=== PATIENT | female | born 1965 | race Caucasian/White ===

== ENCOUNTER 2017-01-04 18:36 | Day surgery (SDC) | payer OTHER ==
[~2017-01-04] VITALS: Ht 154.9 cm; Wt 98.2 kg
[2017-01-04] MEDS ORDERED: VERAMYST (18:49)
[2017-01-04] MEDS ORDERED: VITA1CAP40 PO (18:49)
[2017-01-04] MEDS ORDERED: TETANUS/DIPHTHERIA TOX ADSORB ADULT 0.5ML SYR/VIAL (90714) IM ONE (20:45)
[2017-01-04] MEDS ORDERED: CLINDAMYCIN 900 MG in APPROPRIATE DILUENT 1 EA IV ONE (20:45)
[2017-01-04] MEDS ORDERED: PERC5TAB12 PO (21:15)
[2017-01-04] MEDS ORDERED: CLEO300C2 PO (21:15)
[2017-01-04] MEDS ORDERED: COLA100C5 PO (21:15)
[2017-01-04] MEDS ORDERED: LIDOCAINE 1% SDV INJ 30 ML VIAL As Ordered ONE (22:08)
[2017-01-04] MEDS ORDERED: BUPIVACAINE HCL 0.25% 30 ML VIAL As Ordered ONE (22:08)
[2017-01-04] MEDS ORDERED: XIID5DRO OU (22:08)
[2017-01-04] MEDS ORDERED: SYST1SOL OU (22:08)
[2017-01-05] MEDS ORDERED: LR 1,000 ML IV SCH
[2017-01-05] MEDS ORDERED: fentaNYL 100 MCG/2 ML INJECTION (J3010) IV PRN
[2017-01-05] MEDS ORDERED: LIDOCAINE 2% INJ 100 MG/5 ML SDV (FOR ANES.) As Ordered ONE (00:01)
[2017-01-05] MEDS ORDERED: PROPOFOL 200 MG/20 ML VIAL As Ordered ONE (00:01)
[2017-01-05] MEDS ORDERED: fentaNYL 100 MCG/2 ML INJECTION (J3010) As Ordered ONE (00:01)
[2017-01-05] MEDS ORDERED: MIDAZOLAM INJ 2 MG/2 ML VIAL (J2250) As Ordered ONE (00:01)
[2017-01-05 00:10] VITALS: BP 131/78
[2017-01-05] MEDS ORDERED: MORPHINE 2 MG/ML 1ML SYRINGE IV PRN (00:15)
[2017-01-05] MEDS ORDERED: PERCOCET 5MG/325MG TAB PO PRN ×2 (00:15)
[2017-01-05] MEDS ORDERED: NS 1,000 ML IV SCH (00:15)
--- NOTE | 2017-01-05 00:37 | REP ---
Clinical: Trauma. Laceration. Technique: AP, lateral, bilateral oblique views of the right second digit. Findings: Compound, comminuted, transverse fracture through the distal phalanx is appreciated with associated displacement of the distal fracture fragment and overlying laceration/soft tissue injury. Small densities are most consistent with small fracture fragments and less likely foreign body material. Impression: Comminuted, compound fracture of the distal phalanx with displacement. Signed by Ankit Ferraro MD 01/05/2017 12:30 A
[2017-01-05 00:50] VITALS: BP 121/69
[2017-01-05 01:20] VITALS: BP 134/86
--- NOTE | 2017-01-05 02:37 | REP ---
Clinical: Intraoperative reduction and fixation. Technique: Multiple intraoperative fluoroscopic images. Findings: AP and lateral views of the right second digit demonstrates the patient to be status post satisfactory reduction and fixation for distal phalangeal fracture with K-wire in satisfactory position. Total fluoroscopic time 43 seconds. Impression: Status post intraoperative fixation for distal phalangeal fracture. Signed by Ankit Ferraro MD 01/05/2017 02:29 A
--- NOTE | 2017-01-05 14:07 | HPE ---
DATE OF ADMISSION: 01/04/2017 CHIEF COMPLAINT: Right index finger injury. HISTORY OF PRESENT ILLNESS: The patient caught her right index fingertip beneath a falling beam this evening and presented promptly with partial amputation of the right index fingertip. No other active complaints at this time. PAST MEDICAL HISTORY: Denies. PAST SURGICAL HISTORY: Right knee arthroscopy, foot surgery, section, hysterectomy. CURRENT MEDICATIONS: On vitamin D and Viramist for allergies. SOCIAL HISTORY: Denies tobacco, alcohol, or drug use at this time. REVIEW OF SYSTEMS: No fevers, chills, nausea, vomiting. No diarrhea or constipation. No chest pain or shortness of breath. ALLERGIES: She believes that she may have an allergy to PENICILLIN. PHYSICAL EXAMINATION: Awake, alert, and oriented times three. Well appearing female. No acute distress. Appropriately dressed, well nourished. Head is normocephalic, atraumatic. Extraocular muscles are intact. CARDIOVASCULAR: Regular rate and rhythm. PULMONARY: No increased work of breathing. ABDOMEN: Soft, nontender, nondistended. EXTREMITIES : Focused examination of the right hand index finger shows a partial amputation at the terminal phalanx level. She has less than 2 seconds capillary refill on the tip of the finger. The nail bed and nail plate are intact and grossly atraumatic. She does demonstrate some active flexion and extension of the terminal phalanx, limited somewhat due to guarding, but the tendon mechanism does appear to be intact at this time. There is no gross contamination. The finger and hand is otherwise atraumatic. The wrist and forearm are also nontender and grossly atraumatic. X-rays of the right hand and index finger shows a partial amputation at the terminal phalanx with a complete fracture just distal to the base of the third phalanx, which does appear to be extraarticular. ASSESSMENT: 1. Partial amputation at the right index finger, terminal phalanx, as above. PLAN: Dose of IV antibiotics and irrigation to be given in the emergency department followed by a dry dressing. Her tetanus will be updated. The plan at this time is to take her to the operating room for irrigation and debridement and pinning of the fracture, most likely a transarticular pinning given the small size of the terminal phalanx fragment and any other repairs or procedures as needed. All other questions were answered. She did sign a surgical consent in my presence. She is satisfied with the treatment and plan at this time.
--- NOTE | 2017-01-05 15:20 | RO ---
DATE OF PROCEDURE: 01/04/2017 PREPROCEDURE DIAGNOSIS: Right hand index finger terminal phalanx fracture with near amputation. POSTPROCEDURE DIAGNOSIS: Right hand index finger terminal phalanx fracture with near amputation. PROCEDURE PERFORMED: Right hand index finger ring block, irrigation, debridement, reduction and pinning of terminal phalanx fracture and laceration repair. PRIMARY SURGEON: Dr. Masood Solo. ANESTHESIA: Local plus monitored sedation. ESTIMATED BLOOD LOSS: 5 mL. IMPLANTS: Single percutaneous K wire was inserted. COMPLICATIONS: None. DESCRIPTION OF PROCEDURE: The patient was identified in the preoperative holding area by name, medical record, date of . Surgical site was marked in consultation with the patient. She was evaluated by anesthesia. When she was ready, she was brought back to the operating suite on a gurney and transferred to the table. At this point, she was sedated. Prior to doing the procedure, a final time out was performed and all in agreement. She was given IV antibiotic with clindamycin prior to incision. I began the procedure by performing a ring block with local anesthetic injection at the base of the index finger. Following this, the right index finger was sterilely prepped and draped in the usual fashion. I next copiously irrigated the laceration. This was a fairly clean laceration just distal to the distal interphalangeal joint. The finger itself was somewhat dirty and there were a few small flecks of dirt within the wound. The wound was copiously irrigated and cleaned. The wound edges were pink and well perfused. The long flexor tendon was grossly intact. Again, the wound was copiously irrigated using an antegrade-retrograde drilling technique, a K wire was inserted through the tip of the terminal phalanx. Next, using direct visualization and fluoroscopic guidance, the fracture itself was reduced and the pin was inserted transarticularly, given how small the fracture fragment was in the terminal phalanx. There was not felt to be any stability just within the small fracture fragment, necessitating a transarticular fixation and so the pin was inserted intramedullary fashion through the second phalanx, achieving fixation within the base of the second phalanx without violating the joint surface. Direct visualization and fluoroscopic guidance confirmed satisfactory reduction and position of the hardware. At this time, the laceration edges were loosely reapproximated. The nail base, which was avulsed from its origin was reduced back beneath the eponychial fold and overall the alignment and the contour of the finger was satisfactory at this time. THe fingertip did still remain pink and well perfused with less than 2 seconds capillary refill. Sterile dressings and a well padded finger splint were applied after the pin was appropriately bent and trimmed. Final x-rays in the splint confirmed satisfactory reduction and position of the hardware. The patient was brought out of anesthesia and transferred to the postanesthesia care unit in stable condition. PLAN: She will be discharged to home on prescription for home oral antibiotics. Followup in the outpatient clinic in 48 hours or so for a wound check and dressing change or earlier as needed.
== END 2017-01-05 01:40 | disposition home or self-care (01) ==
LOC: EDBD 18:36 → M ED 18:36 → M SDC 20:53 → M PED 01-05 00:13 → M SDC 01-05 01:40
DX: S62.630B Displaced fracture of distal phalanx of right index finger, initial encounter for open fracture (principal); S61.318A Laceration without foreign body of other finger with damage to nail, initial encounter; W20.8XXA Other cause of strike by thrown, projected or falling object, initial encounter; Y92.89 Other specified places as the place of occurrence of the external cause; Y93.89 Activity, other specified; Y99.8 Other external cause status; E66.01 Morbid (severe) obesity due to excess calories; J30.2 Other seasonal allergic rhinitis; Z88.0 Allergy status to penicillin; Z90.710 Acquired absence of both cervix and uterus
CPT/HCPCS: 11010; 12001; 26765; 64450; 73140; 90714; 99284; J2250; J3010

== ENCOUNTER → 2017-01-08 | Outpatient (REF) | payer OTHER ==
[~2017-01-08] MED LIST: CLEO300C2 PO; COLA100C5 PO; PERC5TAB12 PO; SYST1SOL OU; VERAMYST; VITA1CAP40 PO; XIID5DRO OU
== END ==
LOC: M LAB REF 15:24
PROVIDERS: ATTEND Orthopaedic Surgery
DX: S62.630D Displaced fracture of distal phalanx of right index finger, subsequent encounter for fracture with routine healing (principal); S62.630B Displaced fracture of distal phalanx of right index finger, initial encounter for open fracture; X58.XXXD Exposure to other specified factors, subsequent encounter; Y92.9 Unspecified place or not applicable; Y93.9 Activity, unspecified; Y99.9 Unspecified external cause status

== ENCOUNTER → 2017-05-12 | Outpatient (REF) | payer OTHER ==
[2017-05-12 12:57] LABS: ALBUMIN 4.1 GM/DL (3.2-5.2); ALBUMIN/GLOBULIN RATIO 1.37 (1.00-1.93); ALKALINE PHOSPHATASE 59 U/L (45-117); ALT/SGPT 40 U/L (12-78); ANION GAP 9 MEQ/L (8-16); AST/SGOT 24 U/L (7-37); BILIRUBIN,TOTAL 1.4 MG/DL (0.2-1.0); BLOOD UREA NITROGEN 15 MG/DL (7-18); CALCIUM LEVEL 8.9 MG/DL (8.5-10.1); CARBON DIOXIDE LEVEL 26 MEQ/L (21-32); CHLORIDE LEVEL 107 MEQ/L (98-107); CHOLESTEROL LEVEL 204 MG/DL (<200); CREATININE FOR GFR 0.75 MG/DL (0.55-1.02); GLOMERULAR FILTRATION RATE > 60.0 (>58); GLUCOSE, FASTING 103 MG/DL (70-105); POTASSIUM SERUM 4.2 MEQ/L (3.5-5.1); SODIUM LEVEL 142 MEQ/L (136-145); TOTAL PROTEIN 7.1 GM/DL (6.4-8.2); TRIGLYCERIDES LEVEL 86 MG/DL (<150)
== END ==
LOC: M SFHCPLAZ 09:16
PROVIDERS: ATTEND Internal Medicine
DX: Z00.00 Encounter for general adult medical examination without abnormal findings (principal); E55.9 Vitamin D deficiency, unspecified; E78.00 Pure hypercholesterolemia, unspecified

== ENCOUNTER → 2018-07-06 | Outpatient (REF) | payer OTHER ==
[~2018-07-06] MED LIST changes: -VITA1CAP40 PO; +VITA50005 PO
[2018-07-06 13:37] LABS: HEMATOCRIT 38.1 % (36.0-47.0); HEMOGLOBIN 12.9 g/dl (12.0-15.5); MEAN CORPUSCULAR HEMOGLOBIN 28.4 pg (27.0-33.0); MEAN CORPUSCULAR HGB CONC 33.9 g/dl (32.0-36.5); MEAN CORPUSCULAR VOLUME 83.9 fl (80.0-96.0); PLATELET COUNT, AUTOMATED 242 10^3/uL (150-450); RED BLOOD COUNT 4.54 10^6/uL (4.00-5.40)
[2018-07-06 14:10] LABS: ALBUMIN 4.1 GM/DL (3.2-5.2); ALT/SGPT 36 U/L (12-78); BILIRUBIN,TOTAL 0.8 MG/DL (0.2-1.0); BLOOD UREA NITROGEN 12 MG/DL (7-18); CALCIUM LEVEL 8.7 MG/DL (8.5-10.1); CARBON DIOXIDE LEVEL 27 MEQ/L (21-32); CHLORIDE LEVEL 106 MEQ/L (98-107); CHOLESTEROL LEVEL 209 MG/DL (<200); CHOLESTEROL RISK RATIO 4.446 (<5); CREATININE FOR GFR 0.64 MG/DL (0.55-1.30); GLOMERULAR FILTRATION RATE > 60.0 (>51); GLUCOSE, FASTING 123 MG/DL (70-100); HDL CHOLESTEROL 47 MG/DL (>40); LDL CHOLESTEROL 128 MG/DL (<100); NON-HDL-C 162 MG/DL; POTASSIUM SERUM 4.1 MEQ/L (3.5-5.1); SODIUM LEVEL 141 MEQ/L (136-145); TOTAL 25(OH) VITAMIN D 19.9 NG/ML (30.0-100.0); TOTAL PROTEIN 7.2 GM/DL (6.4-8.2); TRIGLYCERIDES LEVEL 172 MG/DL (<150)
[2018-07-07 13:24] LABS: HEMOGLOBIN A1c 7.6 %
== END ==
LOC: M SFHCPLAZ 11:43
PROVIDERS: ATTEND Internal Medicine
DX: Z00.00 Encounter for general adult medical examination without abnormal findings (principal); E78.00 Pure hypercholesterolemia, unspecified; E55.9 Vitamin D deficiency, unspecified

== ENCOUNTER → 2018-09-03 | Outpatient (CLI) | payer OTHER ==
--- NOTE | 2018-09-08 12:45 | SLEEPHOME ---
DATE OF PROCEDURE: 09/03/2018 ORDERED BY: Dr. Martínez Diagnostic home sleep testing was performed due to concern for the obstructive sleep apnea syndrome. For testing, a nocturnal T3 respiratory monitoring device was used. Continuous record was made of pulse, oxygen saturation, airflow, chest and abdominal strain and body position. 9 hours and 59 minutes of data were reviewed. There were 8 hours and 57 minutes marked as time in bed. During the interval marked time in bed, there were 119 respiratory events identified of 10 seconds in duration or greater for a respiratory event index of 13.3. The events were more frequently obstructive, 19 events were central and mixed in description. Baseline pulse rate was 78 beats per minute, pulse rate ranged 57-110. Baseline saturation was 93%. Oxygen saturations fell to 73% and the oxygen desaturation index was 11.2. Testing was performed in both supine and nonsupine positions. IMPRESSION: Abnormal home sleep testing with repetitive respiratory events and oxygen desaturations to 73% and respiratory event index of 13.3 is consistent with the obstructive sleep apnea syndrome. RECOMMENDATION: The patient should be encouraged to undergo formal sleep evaluation and in-laboratory pressure titration.
== END ==
LOC: M SLEEP HO 10:54
PROVIDERS: ATTEND Internal Medicine
DX: R53.83 Other fatigue (principal)

== ENCOUNTER → 2018-09-29 | Outpatient (REF) | payer OTHER ==
[2018-09-29 10:11] LABS: ALBUMIN 3.8 GM/DL (3.2-5.2); ALT/SGPT 36 U/L (12-78); BILIRUBIN,TOTAL 1.4 MG/DL (0.2-1.0); BLOOD UREA NITROGEN 17 MG/DL (7-18); CALCIUM LEVEL 8.6 MG/DL (8.5-10.1); CARBON DIOXIDE LEVEL 26 MEQ/L (21-32); CHLORIDE LEVEL 108 MEQ/L (98-107); CHOLESTEROL LEVEL 203 MG/DL (<200); CREATININE FOR GFR 0.74 MG/DL (0.55-1.30); GLOMERULAR FILTRATION RATE > 60.0 (>51); GLUCOSE, FASTING 138 MG/DL (70-100); HDL CHOLESTEROL 43 MG/DL (>40); LDL CHOLESTEROL 137 MG/DL (<100); NON-HDL-C 160 MG/DL; POTASSIUM SERUM 4.6 MEQ/L (3.5-5.1); SODIUM LEVEL 140 MEQ/L (136-145); TOTAL PROTEIN 6.6 GM/DL (6.4-8.2); TRIGLYCERIDES LEVEL 116 MG/DL (<150)
[2018-09-29 11:15] LABS: HEMOGLOBIN A1c 7.3 %
[2018-09-29 12:50] LABS: CREATININE, URINE 85.7 MG/DL; MALB URINE SIEMENS 6.2 MG/L; MAU/CREAT RATIO 7.2 MCG/MG (0.0-30.0)
== END ==
LOC: M SFHCPLAZ 08:14
PROVIDERS: ATTEND Internal Medicine
DX: R73.01 Impaired fasting glucose (principal); E78.00 Pure hypercholesterolemia, unspecified

== ENCOUNTER → 2019-01-12 | Outpatient (REF) | payer OTHER ==
[2019-01-12 12:56] LABS: ALBUMIN 3.9 GM/DL (3.2-5.2); ALT/SGPT 26 U/L (12-78); BILIRUBIN,TOTAL 1.7 MG/DL (0.2-1.0); BLOOD UREA NITROGEN 17 MG/DL (7-18); CARBON DIOXIDE LEVEL 28 MEQ/L (21-32); CHLORIDE LEVEL 108 MEQ/L (98-107); CHOLESTEROL LEVEL 194 MG/DL (<200); CHOLESTEROL RISK RATIO 3.959 (<5); CREATININE FOR GFR 0.81 MG/DL (0.55-1.30); GLOMERULAR FILTRATION RATE > 60.0 (>51); GLUCOSE, FASTING 99 MG/DL (70-100); HDL CHOLESTEROL 49 MG/DL (>40); LDL CHOLESTEROL 125 MG/DL (<100); NON-HDL-C 145 MG/DL; POTASSIUM SERUM 4.4 MEQ/L (3.5-5.1); SODIUM LEVEL 142 MEQ/L (136-145); TRIGLYCERIDES LEVEL 101 MG/DL (<150)
[2019-01-12 13:44] LABS: HEMOGLOBIN A1c 6.5 %
== END ==
LOC: M SFHCPLAZ 09:10
PROVIDERS: ATTEND Internal Medicine
DX: R73.01 Impaired fasting glucose (principal); E78.00 Pure hypercholesterolemia, unspecified; E55.9 Vitamin D deficiency, unspecified

== ENCOUNTER → 2019-03-23 | Outpatient (REF) | payer OTHER ==
[2019-03-23 21:37] LABS: APPEARANCE, URINE CLOUDY (CLEAR); BACTERIA, URINE AUTO NEGATIVE (NEGATIVE); BILIRUBIN, URINE AUTO NEGATIVE (NEGATIVE); BLOOD, URINE BLOOD 1+ (NEGATIVE); CALCIUM OXALATE CRYSTALS SMALL; COLOR, URINE YELLOW (YELLOW); GLUCOSE, URINE (UA) AUTO NEGATIVE (NEGATIVE); KETONE, URINE AUTO NEGATIVE (NEGATIVE); LEUKOCYTE ESTERASE, URINE AUTO 3+ (NEGATIVE); NITRITE, URINE AUTO NEGATIVE (NEGATIVE); PROTEIN, URINE AUTO NEGATIVE (NEGATIVE); RBC, URINE AUTO 8 /HPF (0-3); SQUAMOUS EPITHELIAL CELL UR AU 0 /HPF (0-6); UROBILINOGEN, URINE AUTO 0.2 mg/dL (0.0-2.0); WBC, URINE AUTO TNTC /HPF (0-3)
== END ==
LOC: M LAB REF 09:27
PROVIDERS: ATTEND Physician Assistant Medical
DX: N39.0 Urinary tract infection, site not specified (principal)

== ENCOUNTER → 2019-05-21 | Outpatient (REF) | payer OTHER | LOC: M LAB 13:19 | PROVIDERS: ATTEND Nurse Practitioner Family | DX: J02.9 Acute pharyngitis, unspecified (principal) ==

== ENCOUNTER → 2019-08-05 | Outpatient (CLI) | payer OTHER ==
[2019-08-05 09:54] LABS: HEMATOCRIT 37.9 % (36.0-47.0); HEMOGLOBIN 12.7 g/dl (12.0-15.5); MEAN CORPUSCULAR HGB CONC 33.5 g/dl (32.0-36.5); MEAN CORPUSCULAR VOLUME 86.5 fl (80.0-96.0); PLATELET COUNT, AUTOMATED 204 10^3/uL (150-450); RED BLOOD COUNT 4.38 10^6/uL (4.00-5.40); WHITE BLOOD COUNT 5.7 10^3/uL (4.0-10.0)
[2019-08-05 10:54] LABS: ALBUMIN 3.9 GM/DL (3.2-5.2); ALT/SGPT 33 U/L (12-78); BILIRUBIN,TOTAL 1.5 MG/DL (0.2-1.0); BLOOD UREA NITROGEN 17 MG/DL (7-18); CALCIUM LEVEL 8.9 MG/DL (8.5-10.1); CARBON DIOXIDE LEVEL 28 MEQ/L (21-32); CHLORIDE LEVEL 109 MEQ/L (98-107); CHOLESTEROL LEVEL 187 MG/DL (<200); CREATININE FOR GFR 0.72 MG/DL (0.55-1.30); GLOMERULAR FILTRATION RATE > 60.0 (>51); GLUCOSE, FASTING 122 MG/DL (70-100); HDL CHOLESTEROL 50 MG/DL (>40); LDL CHOLESTEROL 110 MG/DL (<100); NON-HDL-C 137 MG/DL; POTASSIUM SERUM 4.7 MEQ/L (3.5-5.1); SODIUM LEVEL 141 MEQ/L (136-145); TOTAL PROTEIN 6.8 GM/DL (6.4-8.2); TRIGLYCERIDES LEVEL 136 MG/DL (<150)
[2019-08-05 11:26] LABS: HEMOGLOBIN A1c 6.2 %
== END ==
LOC: M WUC 08:16
PROVIDERS: ATTEND Internal Medicine
DX: E11.69 Type 2 diabetes mellitus with other specified complication (principal); E78.00 Pure hypercholesterolemia, unspecified; R29.818 Other symptoms and signs involving the nervous system

== ENCOUNTER 2019-08-10 07:00 | Outpatient (RCR) | payer OTHER | END 2019-08-13 | LOC: M PT 07:00 | PROVIDERS: ATTEND Orthopaedic Surgery | DX: S83.207A Unspecified tear of unspecified meniscus, current injury, left knee, initial encounter (principal); M17.12 Unilateral primary osteoarthritis, left knee; X58.XXXA Exposure to other specified factors, initial encounter; Y92.9 Unspecified place or not applicable ==

== ENCOUNTER 2019-08-24 07:00 | Outpatient (RCR) | payer OTHER | END 2019-09-13 | LOC: M PT 07:00 | PROVIDERS: ATTEND Orthopaedic Surgery | DX: Z51.89 Encounter for other specified aftercare (principal); S83.207A Unspecified tear of unspecified meniscus, current injury, left knee, initial encounter; M17.12 Unilateral primary osteoarthritis, left knee ==

== ENCOUNTER → 2020-06-05 | Outpatient (REF) | payer OTHER ==
[2020-06-05 11:16] LABS: HEMATOCRIT 38.9 % (36.0-47.0); HEMOGLOBIN 13.1 g/dl (12.0-15.5); MEAN CORPUSCULAR HGB CONC 33.7 g/dl (32.0-36.5); MEAN CORPUSCULAR VOLUME 86.3 fl (80.0-96.0); PLATELET COUNT, AUTOMATED 236 10^3/uL (150-450); RED BLOOD COUNT 4.51 10^6/uL (4.00-5.40); WHITE BLOOD COUNT 7.5 10^3/uL (4.0-10.0)
[2020-06-05 11:40] LABS: ALBUMIN 3.9 GM/DL (3.2-5.2); ALT/SGPT 30 U/L (12-78); BLOOD UREA NITROGEN 12 MG/DL (7-18); CALCIUM LEVEL 8.8 MG/DL (8.5-10.1); CARBON DIOXIDE LEVEL 25 MEQ/L (21-32); CHLORIDE LEVEL 108 MEQ/L (98-107); CHOLESTEROL LEVEL 169 MG/DL (<200); CREATININE FOR GFR 0.82 MG/DL (0.55-1.30); GLOMERULAR FILTRATION RATE > 60.0 (>51); GLUCOSE, FASTING 119 MG/DL (70-100); HDL CHOLESTEROL 50 MG/DL (>40); LDL CHOLESTEROL 101 MG/DL (<100); NON-HDL-C 119 MG/DL; POTASSIUM SERUM 4.2 MEQ/L (3.5-5.1); SODIUM LEVEL 141 MEQ/L (136-145); TRIGLYCERIDES LEVEL 91 MG/DL (<150)
[2020-06-05 11:47] LABS: TOTAL 25(OH) VITAMIN D 24.6 NG/ML (30.0-100.0)
[2020-06-05 12:03] LABS: MALB URINE SIEMENS 9.4 MG/L; MAU/CREAT RATIO 7.2 MCG/MG (0.0-30.0)
[2020-06-05 15:38] LABS: HEMOGLOBIN A1c 6.4 %
== END ==
LOC: M PLALAB 08:19
PROVIDERS: ATTEND Internal Medicine
DX: R29.818 Other symptoms and signs involving the nervous system (principal); E11.69 Type 2 diabetes mellitus with other specified complication; E78.00 Pure hypercholesterolemia, unspecified; E55.9 Vitamin D deficiency, unspecified

== ENCOUNTER → 2020-08-20 | Outpatient (REF) | payer OTHER ==
[2020-08-20 14:57] LABS: FREE T4 1.05 NG/DL (0.76-1.46); THYROID STIMULATING HORMONE 2.06 uIU/ML (0.358-3.740)
== END ==
LOC: M SFHCPLAZ 08:52
PROVIDERS: ATTEND Internal Medicine
DX: R63.5 Abnormal weight gain (principal)

== ENCOUNTER → 2020-08-29 | Outpatient (CLI) | payer OTHER ==
--- NOTE | 2020-08-29 09:33 | REP ---
INDICATION: R13.14 PHARYNGOESOPHAGEAL DYSPHAGIA COMPARISON: None. TECHNIQUE: Forrester scale and color evaluation of the thyroid gland using the linear high frequency transducer. FINDINGS: The thyroid gland is relatively normal in contour, size, vascularity and overall parenchymal echotexture. Isthmus measures 2.5 mm in width. Right lobe measures 5.7 x 1.7 x 1.3 cm and includes 2 adjacent nonspecific hypodense midpole nodules measuring 4 x 5 x 5 mm and 4 x 3 x 4 mm. Left lobe measures 5.3 x 1.7 x 1.2 cm and includes 7 x 4 x 6 mm and 12 x 5 x 7 mm nonspecific complex midpole nodules along with 5 x 3 x 4 mm simple lower pole cyst. IMPRESSION: Nonspecific bilateral nodules all of which measure less than 1.2 cm. Consider annual follow-up if necessary. <Electronically signed by Ankit Ferraro > 08/29/20 [id number]
== END ==
LOC: M WHC 07:28
PROVIDERS: ATTEND Internal Medicine
DX: R13.14 Dysphagia, pharyngoesophageal phase (principal); R93.89 Abnormal findings on diagnostic imaging of other specified body structures

== ENCOUNTER 2020-09-06 13:51 | Emergency (ER) | payer OTHER ==
[~2020-09-06] VITALS: Ht 154.9 cm; Wt 93.2 kg
[2020-09-06] MEDS ORDERED: ESOM40CA35 (14:08)
[2020-09-06] MEDS ORDERED: ATOR1TAB19 (14:08)
[2020-09-06] MEDS ORDERED: METF-838 (14:08)
[2020-09-06] MEDS ORDERED: D31000TA2 PO (14:08)
[2020-09-06] MEDS ORDERED: NS 1,000 ML IV ONE (15:40)
[2020-09-06] MEDS ORDERED: PANTOPRAZOLE SODIUM 40 MG in D5W 50 ML IV SCH (15:40)
[2020-09-06 16:02] LABS: HEMOGLOBIN 13.6 g/dl (12.0-15.5); MEAN CORPUSCULAR HEMOGLOBIN 29.6 pg (27.0-33.0); PLATELET COUNT, AUTOMATED 246 10^3/uL (150-450); WHITE BLOOD COUNT 7.8 10^3/uL (4.0-10.0)
[2020-09-06] MEDS ORDERED: ISOVUE-370 76% 100ML VIAL As Ordered ONE (16:16)
[2020-09-06 16:31] LABS: ALBUMIN 4.2 GM/DL (3.2-5.2); BILIRUBIN,DIRECT 0.4 MG/DL (0.0-0.2); BILIRUBIN,TOTAL 2.4 MG/DL (0.2-1.0); TOTAL PROTEIN 7.4 GM/DL (6.4-8.2)
[2020-09-06 16:54] LABS: ATYPICAL LYMPH 33 % (0-5); EOSINOPHILS 5 % (0-3); LYMPHOCYTES 26 % (16-44); MONOCYTES 2 % (0-5); NEUTROPHILS 34 % (28-66)
--- NOTE | 2020-09-06 16:54 | REP ---
INDICATION: epigastric pain. COMPARISON: None. TECHNIQUE: Abdomen/pelvis CT with IV contrast, without bowel contrast. FINDINGS: The patient indicates she has a cholecystectomy and hysterectomy. The visualized lung salas are unremarkable. The hepatic parenchyma is diffusely less dense than the spleen suggestive of hepato steatosis. The hepatic parenchyma is otherwise unremarkable. There are surgical clips in the gallbladder fossa. There is fatty atrophy of the pancreas. The pancreas is otherwise unremarkable. The spleen is unremarkable. The adrenals and kidneys are unremarkable. There is no hydronephrosis. Abdominal aorta is unremarkable. There is no periaortic adenopathy or mass. There is no bowel distention or obstruction. There is no ascites or adenopathy. There is scattered diverticula in the strands verse colon, descending colon and sigmoid colon. There is no CT evidence of diverticulitis. Pelvis: The appendix is unremarkable. The vaginal cuff and adnexa are unremarkable. The bladder is unremarkable. There is no ascites or adenopathy. IMPRESSION: There are scattered diverticula in the transverse colon, descending colon and sigmoid colon. There is no CT evidence of acute diverticulitis. There is no ascites or adenopathy. No pneumoperitoneum. No bowel distention or obstruction. Cholecystectomy and hysterectomy. Hepato steatosis. <Electronically signed by Reynaldo Butts > 09/06/20 [id number]
[2020-09-06 16:55] LABS: PLATELET ESTIMATE NORMAL (NORMAL)
[2020-09-06] MEDS ORDERED: PANT20TA6 PO (17:34)
[2020-09-06] MEDS ORDERED: CARA1TAB6 PO (17:34)
[2020-09-06 17:40] VITALS: BP 142/78
== END 2020-09-06 17:43 | disposition home or self-care (01) ==
LOC: M ED 13:51
DX: R10.13 Epigastric pain (principal); E78.5 Hyperlipidemia, unspecified; Z79.899 Other long term (current) drug therapy; Z79.84 Long term (current) use of oral hypoglycemic drugs; Z88.0 Allergy status to penicillin
CPT/HCPCS: 74177; 80047; 80076; 82150; 83690; 85025; 96365; 96366; 99284; C9113; Q9967

== ENCOUNTER → 2020-09-15 | Outpatient (CLI) | payer OTHER ==
[~2020-09-15] MED LIST changes: +ATOR1TAB19; +CARA1TAB6 PO; +D31000TA2 PO; +ESOM40CA35; +METF-838; +PANT20TA6 PO
[2020-09-15 10:48] LABS: ALBUMIN 3.7 GM/DL (3.2-5.2); BILIRUBIN,DIRECT 0.4 MG/DL (0.0-0.2); BILIRUBIN,TOTAL 1.8 MG/DL (0.2-1.0); TOTAL PROTEIN 6.4 GM/DL (6.4-8.2)
== END ==
LOC: M LAB 09:15
PROVIDERS: ATTEND Nurse Practitioner Family
DX: R10.13 Epigastric pain (principal); E80.7 Disorder of bilirubin metabolism, unspecified

== ENCOUNTER → 2020-10-22 | Outpatient (CLI) | payer OTHER ==
--- NOTE | 2020-10-22 14:10 | REP ---
INDICATION: R10.13 EPIGASTIC PAIN COMPARISON: None TECHNIQUE: Real time B-mode thomas scale ultrasound examination using curved array transducer. FINDINGS: Liver is mildly echogenic suggesting fatty infiltration. No focal hepatic lesion identified. The spleen is enlarged measuring 11.9 x 12.7 x 7.0 cm (splenic index 1058) without focal splenic lesion identified. Pancreas is normal. Patient is noted to be status post cholecystectomy. No biliary ductal dilatation is appreciated and the common bile duct measures 5 mm diameter. The bilateral kidneys are normal in reniform shape without hydronephrosis. Right kidney measures 9.2 x 4.9 x 4.3 cm. Left kidney measures 10.0 x 4.5 x 5.8 cm. The abdominal aorta appears normal and measures 2.5 cm maximal diameter. No ascites noted. IMPRESSION: 1. Fatty infiltration to the liver. 2. Splenomegaly without focal lesion. <Electronically signed by Ankit Ferraro > 10/22/20 [id number]
== END ==
LOC: M RAD 07:59
PROVIDERS: ATTEND Internal Medicine Gastroenterology
DX: K76.0 Fatty (change of) liver, not elsewhere classified (principal); R16.1 Splenomegaly, not elsewhere classified; R10.13 Epigastric pain; E80.7 Disorder of bilirubin metabolism, unspecified

== ENCOUNTER → 2020-11-15 | Outpatient (CLI) | payer OTHER ==
[2020-11-15 12:45] LABS: HEMOGLOBIN A1c 6.1 %
[2020-11-15 12:56] LABS: ALBUMIN 3.9 GM/DL (3.2-5.2); ALT/SGPT 32 U/L (12-78); BILIRUBIN,TOTAL 1.2 MG/DL (0.2-1.0); BLOOD UREA NITROGEN 16 MG/DL (7-18); CALCIUM LEVEL 8.9 MG/DL (8.5-10.1); CARBON DIOXIDE LEVEL 27 MEQ/L (21-32); CHLORIDE LEVEL 109 MEQ/L (98-107); CREATININE FOR GFR 0.75 MG/DL (0.55-1.30); GLOMERULAR FILTRATION RATE > 60.0 (>51); GLUCOSE, FASTING 111 MG/DL (70-100); POTASSIUM SERUM 4.5 MEQ/L (3.5-5.1); SODIUM LEVEL 140 MEQ/L (136-145); TOTAL 25(OH) VITAMIN D 26.7 NG/ML (30.0-100.0); TOTAL PROTEIN 6.8 GM/DL (6.4-8.2)
[2020-11-15 13:34] LABS: HEPATITIS C VIRUS ABY INDEX < 0.0 INDEX (<0.8)
== END ==
LOC: M WUC 08:30
PROVIDERS: ATTEND Internal Medicine
DX: E11.69 Type 2 diabetes mellitus with other specified complication (principal); E78.00 Pure hypercholesterolemia, unspecified; E55.9 Vitamin D deficiency, unspecified; Z11.59 Encounter for screening for other viral diseases

== ENCOUNTER → 2020-11-15 | Outpatient (CLI) | payer OTHER ==
[2020-11-15 12:23] LABS: HEMATOCRIT 38.8 % (36.0-47.0); HEMOGLOBIN 12.6 g/dl (12.0-15.5); MEAN CORPUSCULAR HEMOGLOBIN 28.9 pg (27.0-33.0); MEAN CORPUSCULAR HGB CONC 32.5 g/dl (32.0-36.5); PLATELET COUNT, AUTOMATED 237 10^3/uL (150-450); RED BLOOD COUNT 4.36 10^6/uL (4.00-5.40); WHITE BLOOD COUNT 6.1 10^3/uL (4.0-10.0)
[2020-11-15 12:35] LABS: INR 0.9; PROTHROMBIN TIME 12.3 SECONDS (12.5-14.3)
[2020-11-15 12:50] LABS: ALBUMIN 3.9 GM/DL (3.2-5.2); ALT/SGPT 32 U/L (12-78); BILIRUBIN,TOTAL 1.2 MG/DL (0.2-1.0); BLOOD UREA NITROGEN 16 MG/DL (7-18); CALCIUM LEVEL 8.9 MG/DL (8.5-10.1); CARBON DIOXIDE LEVEL 27 MEQ/L (21-32); CHLORIDE LEVEL 109 MEQ/L (98-107); CREATININE FOR GFR 0.75 MG/DL (0.55-1.30); GLOMERULAR FILTRATION RATE > 60.0 (>51); GLUCOSE, FASTING 112 MG/DL (70-100); POTASSIUM SERUM 4.3 MEQ/L (3.5-5.1); SODIUM LEVEL 141 MEQ/L (136-145); TOTAL PROTEIN 6.8 GM/DL (6.4-8.2)
== END ==
LOC: M WUC 08:33
PROVIDERS: ATTEND Nurse Practitioner Family
DX: R10.13 Epigastric pain (principal); K76.0 Fatty (change of) liver, not elsewhere classified; E80.7 Disorder of bilirubin metabolism, unspecified; R16.1 Splenomegaly, not elsewhere classified; K22.2 Esophageal obstruction

== ENCOUNTER → 2021-04-15 | Outpatient (CLI) | payer OTHER ==
--- NOTE | 2021-04-15 10:12 | REP ---
INDICATION: ABD PAIN. COMPARISON: 10/22/2020 which showed fatty infiltration of the liver and splenomegaly TECHNIQUE: Transabdominal scanning using real-time sonographic evaluation with Doppler FINDINGS: Multiple ultrasonographic images of the liver show the hepatic parenchymal echo pattern to be diffusely increased. There is no intrahepatic or extrahepatic ductal dilatation. The common bile duct measures between 6 and 7 mm. The patient is status post cholecystectomy.. The imaged portion of the pancreas is within normal limits. The spleen measures 12.4 x 4.2 x12.2 cm. The volumetric index calculation is 635 which is mildly increased. No perisplenic abnormalities are noted. The right kidney measures 10.1 x 5.3 x 5.7 cm. The renal cortical echotexture is within normal limits. Corticomedullary differentiation is preserved. There is no hydronephrosis. There are no masses. The left kidney measures 10.8 x 5.5 x 5.4 cm. The renal cortical echotexture is within normal limits. Corticomedullary differentiation is preserved. There is no hydronephrosis. There are no masses. The imaged portion of the abdominal aorta is within normal limits. There is no evidence of free fluid. IMPRESSION: Note is again made of mild splenomegaly and diffuse fatty infiltration of the liver status quo. <Electronically signed by Bob Perry > 04/15/21 [id number]
== END ==
LOC: M RAD 08:57
PROVIDERS: ATTEND Nurse Practitioner Family
DX: R10.13 Epigastric pain (principal); K76.0 Fatty (change of) liver, not elsewhere classified; R16.1 Splenomegaly, not elsewhere classified; E80.7 Disorder of bilirubin metabolism, unspecified; K22.2 Esophageal obstruction

== ENCOUNTER → 2021-05-22 | Outpatient (CLI) | payer OTHER ==
[2021-05-22 10:34] LABS: BASO % 0.7 % (0.0-1.0); EOS # 0.1 10^3/uL (0.0-0.5); EOS % 1.3 % (0.0-3.0); HEMATOCRIT 37.2 % (36.0-47.0); HEMOGLOBIN 12.6 g/dl (12.0-15.5); LYMPH # 2.7 10^3/uL (1.5-5.0); LYMPH % 44.6 % (24.0-44.0); MEAN CORPUSCULAR HEMOGLOBIN 29.2 pg (27.0-33.0); MEAN CORPUSCULAR HGB CONC 33.9 g/dl (32.0-36.5); MEAN CORPUSCULAR VOLUME 86.1 fl (80.0-96.0); MONO # 0.4 10^3/uL (0.0-0.8); MONO % 6.5 % (2.0-8.0); NEUTROPHILS # 2.8 10^3/uL (1.5-8.5); NEUTROPHILS % 46.7 % (36.0-66.0); PLATELET COUNT, AUTOMATED 216 10^3/uL (150-450); RED BLOOD COUNT 4.32 10^6/uL (4.00-5.40)
[2021-05-22 10:50] LABS: HEMOGLOBIN A1c 6.8 %
[2021-05-22 11:03] LABS: CREATININE, URINE 83.9 MG/DL; MALB URINE SIEMENS < 5.0 MG/L; MAU/CREAT RATIO 5.9 MCG/MG (0.0-30.0)
[2021-05-22 11:07] LABS: ALBUMIN 3.7 GM/DL (3.2-5.2); ALT/SGPT 31 U/L (12-78); BILIRUBIN,TOTAL 1.4 MG/DL (0.2-1.0); BLOOD UREA NITROGEN 15 MG/DL (7-18); CALCIUM LEVEL 8.9 MG/DL (8.5-10.1); CARBON DIOXIDE LEVEL 28 MEQ/L (21-32); CHLORIDE LEVEL 108 MEQ/L (98-107); CHOLESTEROL LEVEL 167 MG/DL (<200); CHOLESTEROL RISK RATIO 3.795 (<5); CREATININE FOR GFR 0.73 MG/DL (0.55-1.30); GLOMERULAR FILTRATION RATE > 60.0 (>51); GLUCOSE, FASTING 131 MG/DL (70-100); HDL CHOLESTEROL 44 MG/DL (>40); LDL CHOLESTEROL 93 MG/DL (<100); NON-HDL-C 123 MG/DL; POTASSIUM SERUM 4.5 MEQ/L (3.5-5.1); SODIUM LEVEL 140 MEQ/L (136-145); TOTAL PROTEIN 6.7 GM/DL (6.4-8.2); TRIGLYCERIDES LEVEL 149 MG/DL (<150)
== END ==
LOC: M PLALAB 08:19
PROVIDERS: ATTEND Internal Medicine
DX: K76.0 Fatty (change of) liver, not elsewhere classified (principal); E11.69 Type 2 diabetes mellitus with other specified complication; E78.00 Pure hypercholesterolemia, unspecified; R29.818 Other symptoms and signs involving the nervous system

== ENCOUNTER → 2021-11-22 | Outpatient (CLI) | payer OTHER ==
[~2021-11-22] MED LIST changes: -D31000TA2 PO; +VITA100093 PO
[2021-11-22 10:09] LABS: ALT/SGPT 35 U/L (12-78); BILIRUBIN,TOTAL 1.2 MG/DL (0.2-1.0); BLOOD UREA NITROGEN 11 MG/DL (7-18); CARBON DIOXIDE LEVEL 28 MEQ/L (21-32); CHLORIDE LEVEL 108 MEQ/L (98-107); CREATININE FOR GFR 0.73 MG/DL (0.55-1.30); GLOMERULAR FILTRATION RATE > 60.0 (>51); GLUCOSE, FASTING 118 MG/DL (70-100); POTASSIUM SERUM 4.2 MEQ/L (3.5-5.1); SODIUM LEVEL 140 MEQ/L (136-145); TOTAL 25(OH) VITAMIN D 18.8 NG/ML (30.0-100.0); TOTAL PROTEIN 6.6 GM/DL (6.4-8.2)
[2021-11-22 14:38] LABS: HEMOGLOBIN A1c 6.7 %
== END ==
LOC: M WUC 08:17
PROVIDERS: ATTEND Internal Medicine
DX: E11.69 Type 2 diabetes mellitus with other specified complication (principal); E55.9 Vitamin D deficiency, unspecified; E78.00 Pure hypercholesterolemia, unspecified

== ENCOUNTER → 2022-04-14 | Outpatient (REF) | payer OTHER ==
[2022-04-14 18:19] LABS: APPEARANCE, URINE MANUAL HAZY (CLEAR); BILIRUBIN, URINE MANUAL NEGATIVE (NEGATIVE); BLOOD URINE MANUAL NEGATIVE (NEGATIVE); COLOR, URINE MANUAL YELLOW (YELLOW); GLUCOSE, URINE (UA) MANUAL NEGATIVE (NEGATIVE); KETONE, URINE MANUAL NEGATIVE (NEGATIVE); LEUKOCYTE ESTERASE, URINE MAN POSITIVE (NEGATIVE); NITRITE, URINE MANUAL NEGATIVE (NEGATIVE); PROTEIN, URINE MANUAL NEGATIVE (NEGATIVE); SPECIFIC GRAVITY,URINE MANUAL 1.015 (1.002-1.035); UROBILINOGEN, URINE MANUAL NORMAL (NORMAL)
[2022-04-14 18:28] LABS: BACTERIA, URINE SMALL AMOUNT; HYALINE CAST, URINE NONE SEEN /lpf (0-1); RBC, URINE NONE SEEN /hpf (0-3); SQUAMOUS EPITHELIAL CELL URINE SMALL AMOUNT /hpf (SMALL AMT)
== END ==
LOC: M SFHCPLAZ 17:34
PROVIDERS: ATTEND Nurse Practitioner Family
DX: N39.0 Urinary tract infection, site not specified (principal)

== ENCOUNTER → 2022-04-28 | Outpatient (CLI) | payer OTHER ==
[2022-04-28 17:56] LABS: HEMATOCRIT 34.9 % (36.0-47.0); HEMOGLOBIN 11.4 g/dl (12.0-15.5); MEAN CORPUSCULAR HEMOGLOBIN 29.1 pg (27.0-33.0); MEAN CORPUSCULAR HGB CONC 32.7 g/dl (32.0-36.5); PLATELET COUNT, AUTOMATED 226 10^3/uL (150-450); RED BLOOD COUNT 3.92 10^6/uL (4.00-5.40); WHITE BLOOD COUNT 6.3 10^3/uL (4.0-10.0)
[2022-04-28 18:04] LABS: INR 1.03; PROTHROMBIN TIME 13.7 SECONDS (12.5-14.5)
[2022-04-28 18:26] LABS: ALBUMIN 3.9 GM/DL (3.2-5.2); ALT/SGPT 25 U/L (12-78); BILIRUBIN,TOTAL 1.3 MG/DL (0.2-1.0); BLOOD UREA NITROGEN 14 MG/DL (7-18); CALCIUM LEVEL 8.8 MG/DL (8.5-10.1); CARBON DIOXIDE LEVEL 28 MEQ/L (21-32); CHLORIDE LEVEL 108 MEQ/L (98-107); CREATININE FOR GFR 0.68 MG/DL (0.55-1.30); GLOMERULAR FILTRATION RATE > 60.0 (>51); GLUCOSE, FASTING 95 MG/DL (70-100); POTASSIUM SERUM 4.1 MEQ/L (3.5-5.1); SODIUM LEVEL 141 MEQ/L (136-145); TOTAL PROTEIN 6.7 GM/DL (6.4-8.2)
== END ==
LOC: M WUC 11:12
PROVIDERS: ATTEND Internal Medicine Gastroenterology
DX: R10.13 Epigastric pain (principal); K76.0 Fatty (change of) liver, not elsewhere classified

== ENCOUNTER → 2022-04-28 | Outpatient (CLI) | payer OTHER | LOC: M WHC 09:00 | PROVIDERS: ATTEND Internal Medicine Gastroenterology | DX: R13.10 Dysphagia, unspecified (principal); K76.0 Fatty (change of) liver, not elsewhere classified; Z90.49 Acquired absence of other specified parts of digestive tract ==

== ENCOUNTER → 2022-05-07 | Outpatient (REF) | payer OTHER ==
[2022-05-07 17:23] LABS: APPEARANCE, URINE MANUAL CLEAR (CLEAR); BILIRUBIN, URINE MANUAL NEGATIVE (NEGATIVE); BLOOD URINE MANUAL NEGATIVE (NEGATIVE); COLOR, URINE MANUAL LT YELLOW (YELLOW); GLUCOSE, URINE (UA) MANUAL NEGATIVE (NEGATIVE); KETONE, URINE MANUAL NEGATIVE (NEGATIVE); LEUKOCYTE ESTERASE, URINE MAN NEGATIVE (NEGATIVE); NITRITE, URINE MANUAL NEGATIVE (NEGATIVE); PROTEIN, URINE MANUAL NEGATIVE (NEGATIVE); SPECIFIC GRAVITY,URINE MANUAL 1.015 (1.002-1.035); UROBILINOGEN, URINE MANUAL NORMAL (NORMAL)
== END ==
LOC: M SFHCPLAZ 16:50
PROVIDERS: ATTEND Nurse Practitioner Family
DX: N39.0 Urinary tract infection, site not specified (principal)

== ENCOUNTER → 2022-05-15 | Outpatient (CLI) | payer OTHER ==
[2022-05-15 13:26] LABS: HEMATOCRIT 39.3 % (36.0-47.0); HEMOGLOBIN 12.9 g/dl (12.0-15.5); MEAN CORPUSCULAR HEMOGLOBIN 29.1 pg (27.0-33.0); MEAN CORPUSCULAR HGB CONC 32.8 g/dl (32.0-36.5); MEAN CORPUSCULAR VOLUME 88.5 fl (80.0-96.0); PLATELET COUNT, AUTOMATED 247 10^3/uL (150-450); RED BLOOD COUNT 4.44 10^6/uL (4.00-5.40); WHITE BLOOD COUNT 7.2 10^3/uL (4.0-10.0)
[2022-05-15 13:44] LABS: THYROID STIMULATING HORMONE 1.626 uIU/ML (0.55-4.78)
[2022-05-15 13:45] LABS: TOTAL 25(OH) VITAMIN D 30.1 NG/ML (20.0-100.0)
[2022-05-15 13:46] LABS: ALBUMIN 4.2 G/DL (3.2-5.2); ALKALINE PHOSPHATASE 55 U/L (46-116); ALT/SGPT 16 U/L (7.0-40); AST/SGOT 16 U/L (<34); BILIRUBIN,TOTAL 1.6 MG/DL (0.3-1.2); BLOOD UREA NITROGEN 15 MG/DL (9-23); CALCIUM LEVEL 9.4 MG/DL (8.5-10.1); CARBON DIOXIDE LEVEL 29 MMOL/L (20-31); CHLORIDE LEVEL 104 MMOL/L (98-107); CHOLESTEROL LEVEL 150 MG/DL (<200); CHOLESTEROL RISK RATIO 3.12 (<5); CREATININE FOR GFR 0.69 MG/DL (0.55-1.30); FREE T4 1.24 NG/DL (0.89-1.76); GLOMERULAR FILTRATION RATE > 60.0 (>51); GLUCOSE, FASTING 90 MG/DL (60-100); LDL CHOLESTEROL 81.4 MG/DL (<100); NON-HDL-C 102 MG/DL; POTASSIUM SERUM 4.3 MMOL/L (3.5-5.1); SODIUM LEVEL 140 MMOL/L (136-145); TOTAL PROTEIN 7.1 G/DL (5.7-8.2); TRIGLYCERIDES LEVEL 103 MG/DL (<150); VITAMIN B12 LEVEL 483 PG/ML (211-911)
[2022-05-15 13:52] LABS: HEMOGLOBIN A1c 5.2 % (4.0-6.0)
[2022-05-15 14:13] LABS: CREATININE, URINE 53.1 MG/DL
[2022-05-15 14:14] LABS: MALB URINE SIEMENS < 5.0 MG/DL; MAU/CREAT RATIO 9.4 MCG/MG (0.0-30.0)
== END ==
LOC: M WUC 08:59
PROVIDERS: ATTEND Internal Medicine Hematology
DX: E11.69 Type 2 diabetes mellitus with other specified complication (principal)

== ENCOUNTER → 2022-11-26 | Outpatient (REF) | payer OTHER ==
[2022-11-26 14:25] LABS: HEMATOCRIT 38.1 % (36.0-47.0); HEMOGLOBIN 12.6 g/dl (12.0-15.5); MEAN CORPUSCULAR HEMOGLOBIN 29.2 pg (27.0-33.0); MEAN CORPUSCULAR HGB CONC 33.1 g/dl (32.0-36.5); MEAN CORPUSCULAR VOLUME 88.4 fl (80.0-96.0); PLATELET COUNT, AUTOMATED 245 10^3/uL (150-450); RED BLOOD COUNT 4.31 10^6/uL (4.00-5.40); WHITE BLOOD COUNT 6.4 10^3/uL (4.0-10.0)
[2022-11-26 14:37] LABS: HEMOGLOBIN A1c 5.4 % (4.0-6.0)
[2022-11-26 14:58] LABS: MAU/CREAT RATIO 2.1 MCG/MG (0.0-30.0)
[2022-11-26 15:01] LABS: C REACTIVE PROTEIN QUANTITATIV < 0.40 MG/DL (<1.0)
[2022-11-26 15:03] LABS: ALBUMIN 4.1 G/DL (3.2-5.2); ALKALINE PHOSPHATASE 58 U/L (46-116); ALT/SGPT 21 U/L (7.0-40); AST/SGOT 12 U/L (<34); BILIRUBIN,TOTAL 1.6 MG/DL (0.3-1.2); BLOOD UREA NITROGEN 17 MG/DL (9-23); CALCIUM LEVEL 9.2 MG/DL (8.5-10.1); CARBON DIOXIDE LEVEL 27 MMOL/L (20-31); CHLORIDE LEVEL 106 MMOL/L (98-107); CHOLESTEROL LEVEL 179 MG/DL (<200); CHOLESTEROL RISK RATIO 4.04 (<5); CREATININE FOR GFR 0.73 MG/DL (0.55-1.30); GLOMERULAR FILTRATION RATE > 60.0 (>51); GLUCOSE, FASTING 96 MG/DL (60-100); HDL CHOLESTEROL 44.2 MG/DL (>40); LDL CHOLESTEROL 111.4 MG/DL (<100); NON-HDL-C 134.8 MG/DL; POTASSIUM SERUM 4.3 MMOL/L (3.5-5.1); SODIUM LEVEL 139 MMOL/L (136-145); THYROID STIMULATING HORMONE 2.909 uIU/ML (0.55-4.78); TOTAL 25(OH) VITAMIN D 21.9 NG/ML (20.0-100.0); TOTAL PROTEIN 6.9 G/DL (5.7-8.2); TRIGLYCERIDES LEVEL 117 MG/DL (<150)
[2022-11-26 15:04] LABS: FREE T4 1.11 NG/DL (0.89-1.76); VITAMIN B12 LEVEL 347 PG/ML (211-911)
[2022-11-27 15:08] LABS: INSULIN LEVEL 15.4 uIU/mL (2.6-24.9); LIPOPROTEIN (a) <9.0 nmol/L (<75.0)
== END ==
LOC: M SFHCPLAZ 12:03
PROVIDERS: ATTEND Internal Medicine Hematology
DX: K76.0 Fatty (change of) liver, not elsewhere classified (principal); E78.00 Pure hypercholesterolemia, unspecified

== ENCOUNTER → 2023-11-18 | Outpatient (CLI) | payer OTHER ==
[2023-11-19 10:25] LABS: HEMATOCRIT 37.3 % (36.0-47.0); HEMOGLOBIN 12.4 g/dl (12.0-15.5); MEAN CORPUSCULAR HEMOGLOBIN 29.2 pg (27.0-33.0); MEAN CORPUSCULAR HGB CONC 33.2 g/dl (32.0-36.5); PLATELET COUNT, AUTOMATED 242 10^3/uL (150-450); RED BLOOD COUNT 4.24 10^6/uL (4.00-5.40); WHITE BLOOD COUNT 6.5 10^3/uL (4.0-10.0)
[2023-11-19 10:46] LABS: C REACTIVE PROTEIN QUANTITATIV < 0.40 MG/DL (<1.0)
[2023-11-19 10:48] LABS: ALKALINE PHOSPHATASE 64 U/L (46-116); ALT/SGPT 22 U/L (7.0-40); AST/SGOT 10 U/L (<34); BILIRUBIN,TOTAL 1.2 MG/DL (0.3-1.2); BLOOD UREA NITROGEN 18 MG/DL (9-23); CALCIUM LEVEL 9.4 MG/DL (8.5-10.1); CARBON DIOXIDE LEVEL 28 MMOL/L (20-31); CHLORIDE LEVEL 109 MMOL/L (98-107); CHOLESTEROL LEVEL 178 MG/DL (<200); CHOLESTEROL RISK RATIO 3.76 (<5); CREATININE FOR GFR 0.76 MG/DL (0.55-1.30); FREE T4 1.04 NG/DL (0.89-1.76); GLOMERULAR FILTRATION RATE > 60.0 (>51); GLUCOSE, FASTING 94 MG/DL (60-100); HDL CHOLESTEROL 47.3 MG/DL (>40); LDL CHOLESTEROL 95.5 MG/DL (<100); NON-HDL-C 130.7 MG/DL; POTASSIUM SERUM 5.1 MMOL/L (3.5-5.1); SODIUM LEVEL 143 MMOL/L (136-145); TOTAL PROTEIN 6.8 G/DL (5.7-8.2); TRIGLYCERIDES LEVEL 176 MG/DL (<150)
[2023-11-19 10:49] LABS: THYROID STIMULATING HORMONE 1.907 uIU/ML (0.55-4.78); VITAMIN B12 LEVEL 464 PG/ML (211-911)
[2023-11-19 10:53] LABS: HEMOGLOBIN A1c 5.7 % (4.0-6.0)
== END ==
LOC: M PLALAB 16:35
PROVIDERS: ATTEND Internal Medicine Hematology
DX: E78.00 Pure hypercholesterolemia, unspecified (principal)

== ENCOUNTER → 2023-12-24 | Outpatient (REF) | payer OTHER | LOC: M SFHCDERM 16:04 | PROVIDERS: ATTEND Physician Assistant | DX: D49.2 Neoplasm of unspecified behavior of bone, soft tissue, and skin (principal) ==

== ENCOUNTER → 2024-09-05 | Outpatient (CLI) | payer OTHER | LOC: M RAD 06:57 | DX: K76.0 Fatty (change of) liver, not elsewhere classified (principal); R19.8 Other specified symptoms and signs involving the digestive system and abdomen; Z86.0100 Personal history of colon polyps, unspecified; Z83.710 Family history of adenomatous and serrated polyps ==

== ENCOUNTER 2025-04-03 12:48 | Day surgery (SDC) | payer OTHER ==
[~2025-04-03] VITALS: Ht 154.9 cm; Wt 90.6 kg
[~2025-04-03 12:48] MED LIST changes: +LIFI1DRO4 OU; +TRUL0.5I SC; -XIID5DRO OU
[2025-04-03] MEDS ORDERED: LIDOCAINE W/EPINEPHrine 1% 20 ML VIAL XX ONE (14:15)
[2025-04-03] MEDS ORDERED: SODIUM BICARBONATE 8.4% INJ 50MEQ/50ML VIAL XX ONE (14:15)
[2025-04-03 15:45] VITALS: BP 126/68; TEMP 97.4; O2SAT 99
== END 2025-04-03 16:00 | disposition home or self-care (01) ==
LOC: M SDC 12:48
PROVIDERS: ATTEND Orthopaedic Surgery Hand Surgery
DX: M65.4 Radial styloid tenosynovitis [de Quervain] (principal); E11.9 Type 2 diabetes mellitus without complications; Z79.85 Long-term (current) use of injectable non-insulin antidiabetic drugs; Z79.899 Other long term (current) drug therapy; Z90.710 Acquired absence of both cervix and uterus